=== PATIENT | female | born 1985 | race Hispanic/Latino ===

== ENCOUNTER 2024-07-31 16:21 | Emergency (ER) | payer OTHER ==
[~2024-07-31] VITALS: Ht 162.6 cm; Wt 77.1 kg
[2024-07-31 17:30] LABS: BASOPHILS % 0.4 % (0.0-1.0); HEMATOCRIT 31.5 % (34.2-44.1); HEMOGLOBIN 9.5 g/dL (12.0-16.0); LYMPHOCYTES # (AUTO) 1.2 (1.0-3.2); LYMPHOCYTES % 22.4 % (18.0-39.1); MEAN CORPUSCULAR HEMOGLOBIN 23.8 pg (28-32); MEAN CORPUSCULAR HGB CONC 30.2 g/dL (31-35); MEAN CORPUSCULAR VOLUME 78.8 fL (81-99); MONOCYTES # (AUTO) 0.3 (0.2-0.8); NEUTROPHILS # (AUTO) 3.7 (2.1-6.9); NEUTROPHILS % 68.1 % (38.7-80.0); PLATELET COUNT 144 x10e3/uL (140-360); RED CELL DISTRIBUTION WIDTH 15.3 % (11.7-14.4)
[2024-07-31] MEDS ORDERED: ONDANSETRON HCL INJ 2MG/ML 2ML 2 MG/ML VIAL ONE (18:01)
[2024-07-31 18:04] LABS: ALBUMIN 3.1 g/dL (3.5-5.0); ANION GAP 13.7 mmol/L (8-16); BILIRUBIN,TOTAL 0.5 mg/dL (0.2-1.2); CALCIUM 7.5 mg/dL (8.4-10.2); CREATININE, SERUM 0.6 mg/dL (0.57-1.11); POTASSIUM 3.7 mmol/L (3.5-5.1); TOTAL PROTEIN 6.3 g/dL (6.5-8.1)
[2024-07-31] MEDS: SODIUM CHLORIDE 0.9% 1000ML 1,000 ML IV SCH (18:08)
[2024-07-31] MEDS: KETOROLAC TROMETHAMINE 30 MG/ML VIAL IV STA (18:10)
[2024-07-31] MEDS: DICYCLOMINE HCL 20 MG/2 ML VIAL IM ONE (18:11)
[2024-07-31 19:08] LABS: CLARITY,URINE CLEAR (CLEAR); COLOR,URINE YELLOW (YELLOW); LEUKOCYTE ESTERASE ,URINE NEGATIVE (NEGATIVE); NITRITE,URINE NEGATIVE (NEGATIVE); PH,URINE 8.5 (5 - 7); PROTEIN,URINE DIPSTICK NEGATIVE (NEGATIVE)
[2024-07-31 19:09] LABS: BILIRUBIN,URINE NEGATIVE (NEGATIVE); GLUCOSE, URINE NEGATIVE (NEGATIVE); KETONES,URINE TRACE (NEGATIVE); URINE UROBILINOGEN 0.2 mg/dL (0.2 - 1)
[2024-07-31 19:10] LABS: BACTERIA,URINE FEW /HPF; EPITHELIAL CELLS,URINE MODERATE /LPF; RBC,URINE 0-5 /HPF (0-5); WBC,URINE (MAN) 0-5 /HPF (0-5)
[2024-07-31] MEDS ORDERED: IOPAMIDOL 370 MG/ML 100 ML INFUS..BTL INJ ONE (19:19)
[2024-07-31] MEDS: SODIUM CHLORIDE 0.9% 1000ML 1,000 ML IV STA (21:40)
[2024-07-31] MEDS ORDERED: LEVOFLOXACIN750 MG PO (21:44)
[2024-07-31] MEDS ORDERED: ULTRAM 50MG50 MG PO (21:44)
[2024-07-31] MEDS: ACETAMINOPHEN 325 MG TAB PO ONE (21:48)
[2024-07-31] MEDS ORDERED: IBUPROFEN 600 MG TAB PO STA (22:55)
[2024-07-31] MEDS: IBUPROFEN 400 MG TAB PO ONE (23:00)
[2024-07-31] MEDS ORDERED: IBUPROFEN 400 MG TAB ONE (23:04)
[2024-08-01 00:27] VITALS: PULSE 91; RESP 19; TEMP 100.7
[2024-08-01] MEDS: SODIUM CHLORIDE 0.9% 1000ML 1,000 ML IV ONE (00:29)
[2024-08-01] MEDS ORDERED: SODIUM CHLORIDE 0.9% 1000ML 1,000 ML ONE (00:29)
[2024-08-01 00:51] VITALS: BP 102/61; PULSE 87; RESP 17; TEMP 100; O2SAT 99
== END 2024-08-01 00:57 | disposition home or self-care (01) ==
LOC: ER 16:26
DX: R10.32 Left lower quadrant pain (principal); N20.0 Calculus of kidney; J90 Pleural effusion, not elsewhere classified; K76.0 Fatty (change of) liver, not elsewhere classified; Z98.84 Bariatric surgery status
CPT/HCPCS: 36415; 74177; 80053; 81001; 84702; 85025; 99284; J0500; J1885; J2405; J7030 ×2; Q9967